=== PATIENT | male | born 1955 | race Caucasian/White ===

== ENCOUNTER 2019-05-09 19:43 | Emergency (ER) | payer BC ==
[2019-05-09 20:07] VITALS: BP 165/81
--- NOTE | 2019-05-09 21:12 | ER Document Report ---
ED Medical Screen (RME) - General Chief Complaint: Allergic Reaction Stated Complaint: POSSIBLE ALLERGIC REACTION Time Seen by Provider: 05/09/19 21:07 Mode of Arrival: Ambulatory Information source: Patient Notes: This 64-year-old male presents to the emergency department with reports of possible allergic reaction. Reports he has itchy rash in between the webs of his fingers all over now. Patient reports he has been to see an dispensing and measuring optician and dispensing and measuring optician does not know what it is. It looks like possible scabies to me. No other complaint such as fever vomiting diarrhea. He took Benadryl 6 hours ago. I have greeted and performed a rapid initial assessment of this patient. A comprehensive ED assessment and evaluation of the patient, analysis of test results and completion of the medical decision making process will be conducted by additional ED providers. Dictation of this chart was performed using voice recognition software; therefore, there may be some unintended grammatical errors. TRAVEL OUTSIDE OF THE [place] IN LAST 30 DAYS: No Past Medical History - Social History Frequency of alcohol use: None Physical Exam - Vital signs Vitals: Temp Pulse Resp BP Pulse Ox 97.9 F 67 16 165/81 H 95 05/09/19 20:06 05/09/19 20:06 05/09/19 20:06 05/09/19 20:06 05/09/19 20:06 Course - Vital Signs Vital signs: Temp Pulse Resp BP Pulse Ox 97.9 F 67 16 165/81 H 95 05/09/19 21:07 05/09/19 20:06 05/09/19 21:07 05/09/19 20:06 05/09/19 21:07
== END 2019-05-09 23:31 | disposition left against medical advice (07) ==
LOC: ER 19:43
DX: Z53.21 Procedure and treatment not carried out due to patient leaving prior to being seen by health care provider (principal); T78.40XA Allergy, unspecified, initial encounter
CPT/HCPCS: 99281